=== PATIENT | male | born 1950 | race Hispanic/Latino ===

== ENCOUNTER 2017-12-17 21:55 | Emergency (ER) | payer MEDICARE ==
[2017-12-17] MEDS ORDERED: SODIUM CHLORIDE 0.9% 1000ML 1,000 ML IV ONE (22:24)
[2017-12-17] MEDS ORDERED: ACETAMINOPHEN EXTRA STRENGTH 500 MG TABLET ONE (22:24)
[2017-12-17] MEDS ORDERED: ONDANSETRON HCL MDV 20ML 2 MG/ML VIAL ONE (22:24)
[2017-12-17 22:27] LABS: BASOPHILS % (AUTO) 0.7 % (0.0-5.0); HEMATOCRIT 46.2 % (42-54); LYMPHOCYTES % (AUTO) 11.1 % (21.0-51.0); MEAN CORPUSCULAR HEMOGLOBIN 30.6 pg (27.0-33.0); MEAN CORPUSCULAR HGB CONC 34.3 g/dL (32.0-36.0); MONOCYTES % (AUTO) 10.1 % (3.0-13.0); NEUTROPHILS % (AUTO) 78.1 % (40.0-77.0); NUCLEATED RED BLOOD CELLS 0.1 % (0.0-0.19); PLATELET COUNT (AUTO) 333 K/uL (130-400); RED BLOOD CELL COUNT(AUTO) 5.18 MIL/uL (4.50-6.20); RED CELL DISTRIBUTION WIDTH 13.8 % (11.0-15.5); WHITE BLOOD COUNT (AUTO) 9.1 K/uL (4.8-10.8)
[2017-12-17 22:29] LABS: BILIRUBIN,URINE Negative (NEGATIVE); COLOR,URINE Yellow (YELLOW); GLUCOSE, URINE (UA) Negative (NEGATIVE); KETONES,URINE Negative (NEGATIVE); LEUKOCYTE ESTERASE ,URINE Negative (NEGATIVE); NITRATE,URINE Negative (NEGATIVE); OCCULT BLOOD,URINE Small (NEGATIVE); PH,URINE 6.5 (5.0-8.0); PROTEIN,URINE POS 2+ (NEGATIVE)
[2017-12-17 22:33] LABS: APPEARANCE,URINE SLIGHTLY CLOUDY (CLEAR)
[2017-12-17 22:39] LABS: CREATININE 1.2 mg/dL (0.5-1.5); POTASSIUM 3.5 mmol/L (3.5-5.1)
[2017-12-17 22:40] LABS: INR 1.06 (0.85-1.15); PARTIAL THROMBOPLASTIN TIME 28.3 SEC (26.3-35.5); PROTHROMBIN TIME 11.1 SEC (9.6-11.6)
[2017-12-17 22:43] LABS: ALBUMIN 3.3 g/dL (3.5-5.0); BILIRUBIN,DIRECT 0.1 mg/dL (0.0-0.3); BILIRUBIN,TOTAL 0.3 mg/dL (0.2-1.0); TOTAL PROTEIN, SERUM 8.6 g/dL (6.0-8.3)
[2017-12-17 22:45] LABS: WBC,URINE None Seen /HPF (0-1)
[2017-12-17 22:46] LABS: BACTERIA,URINE None Seen /HPF (None Seen); SQUAMOUS EPITHELIAL CELL,UR Rare /HPF (0-2)
== END 2017-12-18 00:51 | disposition home or self-care (01) ==
LOC: EDH 21:55
DX: K52.9 Noninfective gastroenteritis and colitis, unspecified (principal); I10 Essential (primary) hypertension; Z88.6 Allergy status to analgesic agent
CPT/HCPCS: 36415; 71045; 80048; 80076; 81001; 82550; 83605; 83690; 85025; 85610; 85730; 87804 ×2; 93005; 96361; 96374; 99285; J7030

== ENCOUNTER 2020-04-07 23:29 | Emergency (ER) | payer MEDICARE, OTHER ==
[~2020-04-07 23:29] MED LIST: CEFD300C3 PO; ENAL20TA18 PO
[2020-04-07] MEDS ORDERED: SODIUM CHLORIDE 0.9% 1000ML 1,000 ML IV ONE (23:30)
[2020-04-07] MEDS ORDERED: PANTOPRAZOLE 40 MG/VIAL IVP ONE (23:30)
[2020-04-07] MEDS ORDERED: METOCLOPRAMIDE 10 MG/2 ML VIAL IVP ONE (23:30)
[2020-04-07] MEDS ORDERED: ONDANSETRON HCL 4 MG/2 ML VIAL ONE (23:43)
[2020-04-07] MEDS ORDERED: FAMOTIDINE/PF 20 MG/2 ML VIAL IV ONE (23:43)
[2020-04-07 23:53] LABS: BASOPHILS % (AUTO) 0.4 % (0.0-5.0); EOSINOPHILS % (AUTO) 0.6 % (0.0-8.0); HEMATOCRIT 47.3 % (42-54); LYMPHOCYTES % (AUTO) 10.5 % (21.0-51.0); MEAN CORPUSCULAR HEMOGLOBIN 31.4 pg (27.0-33.0); MEAN CORPUSCULAR VOLUME 92.2 fL (79-99); MONOCYTES % (AUTO) 4.8 % (3.0-13.0); NEUTROPHILS % (AUTO) 83.5 % (40.0-77.0); PLATELET COUNT (AUTO) 393 K/uL (130-400); RED BLOOD CELL COUNT(AUTO) 5.13 MIL/uL (4.50-6.20); RED CELL DISTRIBUTION WIDTH 13.3 % (11.0-15.5)
[2020-04-08 00:19] LABS: BILIRUBIN,TOTAL 0.3 mg/dL (0.2-1.0); CREATININE 2.3 mg/dL (0.5-1.5); POTASSIUM 4.1 mmol/L (3.5-5.1)
[2020-04-08 00:29] LABS: INR 0.97 (0.85-1.15); PARTIAL THROMBOPLASTIN TIME 26.8 SEC (26.3-35.5); PROTHROMBIN TIME 10.5 SEC (9.6-11.6)
[2020-04-08 00:31] LABS: APPEARANCE,URINE Clear (CLEAR); BILIRUBIN,URINE Negative (NEGATIVE); COLOR,URINE Yellow (YELLOW); GLUCOSE, URINE (UA) Negative (NEGATIVE); KETONES,URINE Trace mg/dL (NEGATIVE); LEUKOCYTE ESTERASE ,URINE Negative (NEGATIVE); NITRATE,URINE Negative (NEGATIVE); OCCULT BLOOD,URINE Negative (NEGATIVE); PROTEIN,URINE POS 1+ mg/dL (NEGATIVE)
[2020-04-08 00:41] LABS: BACTERIA,URINE Few /HPF (None Seen); RBC,URINE 0-1 /HPF (0-1); WBC,URINE 0-1 /HPF (0-1)
[2020-04-08] MEDS ORDERED: ONDANSETRON HCL 4 MG/2 ML VIAL ONE (01:59)
== END 2020-04-08 02:08 | disposition home or self-care (01) ==
LOC: EDH 23:29
DX: E86.9 Volume depletion, unspecified (principal); R11.2 Nausea with vomiting, unspecified; R19.7 Diarrhea, unspecified; R10.13 Epigastric pain; I10 Essential (primary) hypertension; Z88.6 Allergy status to analgesic agent; Z87.891 Personal history of nicotine dependence
CPT/HCPCS: 36415; 71045; 74176; 80053; 81001; 82550; 83605; 83690; 84484; 85025; 85610; 85730; 93005; 96361; 96374; 96375; 96376; 99284; C9113; J2405 ×2; J2765; J3490; J7030

== ENCOUNTER 2021-04-25 08:00 | Emergency (ER) | payer MEDICARE, OTHER ==
[~2021-04-25] VITALS: Ht 175.3 cm; Wt 90.7 kg
[2021-04-25 08:11] LABS: BASOPHILS % (AUTO) 0.3 % (0.0-5.0); HEMATOCRIT 51.5 % (42-54); LYMPHOCYTES % (AUTO) 5.9 % (21.0-51.0); MEAN CORPUSCULAR HEMOGLOBIN 31.2 pg (27.0-33.0); MEAN CORPUSCULAR VOLUME 91.8 fL (79-99); MONOCYTES % (AUTO) 3.1 % (3.0-13.0); NEUTROPHILS % (AUTO) 89.9 % (40.0-77.0); PLATELET COUNT (AUTO) 566 K/uL (130-400); RED BLOOD CELL COUNT(AUTO) 5.61 MIL/uL (4.50-6.20); RED CELL DISTRIBUTION WIDTH 13.2 % (11.0-15.5); WHITE BLOOD COUNT (AUTO) 15.6 K/uL (4.8-10.8)
[2021-04-25] MEDS ORDERED: ONDANSETRON 4MG INJ IVP ONE (08:30)
[2021-04-25] MEDS ORDERED: 0.9% NACL 500ML IV.SOLN 500 ML IV ONE (08:30)
[2021-04-25 08:31] LABS: ALBUMIN 4.5 g/dL (3.5-5.0); BILIRUBIN,TOTAL 0.3 mg/dL (0.2-1.0); CREATININE 5.3 mg/dL (0.5-1.5); POTASSIUM 4.2 mmol/L (3.5-5.1); TOTAL PROTEIN, SERUM 10.2 g/dL (6.0-8.3)
[2021-04-25 09:01] LABS: CREATINE KINASE, TOTAL 146 U/L (21-232); LIPASE 191 U/L (114-286)
[2021-04-25 09:50] VITALS: BP 98/69
[2021-04-25] MEDS ORDERED: DIAZEPAM 2 MG TAB PO ONE (11:00)
[2021-04-25 11:26] VITALS: BP 101/69
[2021-04-25] MEDS ORDERED: ONDA4TAB10 PO (13:51)
== END 2021-04-25 14:23 | disposition home or self-care (01) ==
LOC: EDH 08:00
DX: R11.2 Nausea with vomiting, unspecified (principal); R19.7 Diarrhea, unspecified; R10.9 Unspecified abdominal pain; I10 Essential (primary) hypertension; Z20.822 Contact with and (suspected) exposure to COVID-19; Z88.6 Allergy status to analgesic agent; Z79.899 Other long term (current) drug therapy; Z98.890 Other specified postprocedural states
CPT/HCPCS: 36415; 71045; 74176; 80053; 82550; 83690; 83880; 84484; 85025; 87635; 87804 ×2; 93005; 96374; 99285; C9803; J2405; J7040

== ENCOUNTER 2021-05-05 19:40 | Inpatient (IN) | payer MEDICARE ==
[~2021-05-05] VITALS: Ht 177.8 cm; Wt 85.2 kg
[~2021-05-05 19:40] MED LIST changes: +ONDA4TAB10 PO
[2021-05-05 20:25] VITALS: BP 107/66
[2021-05-05] MEDS ORDERED: 0.9%NACL 1000ML 1,000 ML IV ONE (20:30)
[2021-05-05 20:43] LABS: BASOPHILS % (AUTO) 0.5 % (0.0-5.0); EOSINOPHILS % (AUTO) 0.8 % (0.0-8.0); HEMATOCRIT 46.1 % (42-54); LYMPHOCYTES % (AUTO) 10.3 % (21.0-51.0); MEAN CORPUSCULAR HEMOGLOBIN 31.2 pg (27.0-33.0); MEAN CORPUSCULAR HGB CONC 33.4 g/dL (32.0-36.0); MEAN CORPUSCULAR VOLUME 93.5 fL (79-99); MONOCYTES % (AUTO) 6.4 % (3.0-13.0); NEUTROPHILS % (AUTO) 81.6 % (40.0-77.0); PLATELET COUNT (AUTO) 481 K/uL (130-400); RED BLOOD CELL COUNT(AUTO) 4.93 MIL/uL (4.50-6.20); RED CELL DISTRIBUTION WIDTH 13.2 % (11.0-15.5); WHITE BLOOD COUNT (AUTO) 16.2 K/uL (4.8-10.8)
[2021-05-05 21:03] LABS: CREATININE 2.5 mg/dL (0.5-1.5); POTASSIUM 5.4 mmol/L (3.5-5.1)
[2021-05-05 21:07] LABS: ALBUMIN 3.6 g/dL (3.5-5.0); BILIRUBIN,TOTAL 0.5 mg/dL (0.2-1.0); MAGNESIUM 2.2 mg/dL (1.80-2.40); TOTAL PROTEIN, SERUM 8.2 g/dL (6.0-8.3)
[2021-05-05 21:31] VITALS: BP 94/45
[2021-05-05 22:15] LABS: ABG OXYGEN SATURATION 27.1 % (95.0-99.0); BASE EXCESS,VENOUS BLOOD GAS -9.4 (-2.0-3.0); HCO3,VENOUS BLOOD GAS 17.1 (21.0-28.0); PCO2,VENOUS BLOOD GAS 40 (35-48); PH,VENOUS BLOOD GAS 7.255 (7.350-7.450)
[2021-05-05 22:31] LABS: HEMOGLOBIN A1C 6.2 % (4.0-6.0)
[2021-05-05 22:33] LABS: INR 1.08 (0.85-1.15); PROTHROMBIN TIME 11.7 SEC (9.6-11.6)
[2021-05-05 22:34] LABS: PARTIAL THROMBOPLASTIN TIME 26.5 SEC (26.3-35.5)
[2021-05-05 22:49] LABS: MAGNESIUM 1.9 mg/dL (1.80-2.40); PHOSPHORUS 4.1 mg/dL (2.5-4.9); THYROID STIMULATING HORMONE 0.86 uIU/mL (0.36-3.74)
[2021-05-05] MEDS ORDERED: MORPHINE 4 MG SYG IV PRN (23:00)
[2021-05-05] MEDS ORDERED: HYDRALAZINE 20MG/ML VIAL IV PRN (23:00)
[2021-05-05] MEDS ORDERED: HYDROCODONE/ACETAMINOPHEN 5/325 MG TAB PO PRN (23:00)
[2021-05-05] MEDS ORDERED: ONDANSETRON 4MG INJ IV PRN (23:00)
[2021-05-05] MEDS ORDERED: ACETAMINOPHEN 325 MG TAB PO PRN (23:00)
[2021-05-05 23:35] LABS: APPEARANCE,URINE Clear (CLEAR); BILIRUBIN,URINE Negative (NEGATIVE); COLOR,URINE Yellow (YELLOW); GLUCOSE, URINE (UA) Negative (NEGATIVE); KETONES,URINE Trace mg/dL (NEGATIVE); LEUKOCYTE ESTERASE ,URINE Negative (NEGATIVE); NITRATE,URINE Negative (NEGATIVE); OCCULT BLOOD,URINE Negative (NEGATIVE); PROTEIN,URINE Trace mg/dL (NEGATIVE); UROBILINOGEN,URINE 0.2 mg/dL (0.2-1.0)
[2021-05-05] MEDS: 0.9%NACL 1000ML 1,000 ML IV SCH (23:51)
[2021-05-05] MEDS: LEVOFLOXACIN 500 MG/D5W 100 ML 100 ML IV SCH (23:51)
[2021-05-06] VITALS (7 sets, daily range): BP systolic 84–111; BP diastolic 48–73
[2021-05-06] MEDS ORDERED: SODI650T PO (01:36)
[2021-05-06] MEDS ORDERED: TAMS-1 PO (01:36)
[2021-05-06] MEDS ORDERED: ONDA4TAB4 PO (01:36)
[2021-05-06] MEDS ORDERED: MULT-1296 PO (01:36)
[2021-05-06] MEDS ORDERED: ENAL20TA18 PO (01:36)
[2021-05-06] MEDS: 0.9%NACL 1000ML 1,000 ML IV SCH ×3 (05:38→19:22)
[2021-05-06 06:30] LABS: BASOPHILS % (AUTO) 0.9 % (0.0-5.0); EOSINOPHILS % (AUTO) 1.5 % (0.0-8.0); HEMATOCRIT 43.9 % (42-54); LYMPHOCYTES % (AUTO) 14.9 % (21.0-51.0); MEAN CORPUSCULAR HEMOGLOBIN 30.6 pg (27.0-33.0); MEAN CORPUSCULAR HGB CONC 32.3 g/dL (32.0-36.0); MEAN CORPUSCULAR VOLUME 94.6 fL (79-99); MONOCYTES % (AUTO) 6.2 % (3.0-13.0); NEUTROPHILS % (AUTO) 75.9 % (40.0-77.0); PLATELET COUNT (AUTO) 446 K/uL (130-400); RED BLOOD CELL COUNT(AUTO) 4.64 MIL/uL (4.50-6.20); RED CELL DISTRIBUTION WIDTH 13.4 % (11.0-15.5); WHITE BLOOD COUNT (AUTO) 13.8 K/uL (4.8-10.8)
[2021-05-06 06:42] LABS: CREATININE 2.1 mg/dL (0.5-1.5); MAGNESIUM 2.1 mg/dL (1.80-2.40)
[2021-05-06] MEDS ORDERED: ENALAPRIL MALEATE 10 MG TABLET PO SCH (09:00)
[2021-05-06] MEDS: FAMOTIDINE 20MG TAB PO SCH (11:16)
[2021-05-06] MEDS: HEPARIN 5,000 UNIT VIAL SQ SCH ×3 (11:16→20:58)
[2021-05-06] MEDS: TAMSULOSIN HCL 0.4 MG CAP.ER.24H PO SCH (11:18)
[2021-05-06] MEDS: SODIUM BICARBONATE 650 MG TAB PO SCH ×3 (11:18→20:57)
[2021-05-06] MEDS: METRONIDAZOLE 500 MG TABLET PO SCH ×3 (11:24→20:57)
[2021-05-06] MEDS: LEVOFLOXACIN 500 MG/D5W 100 ML 100 ML IV SCH (20:57)
[2021-05-06] MEDS ORDERED: 0.9% NACL 500ML IV.SOLN 500 ML IV SCH (22:00)
[2021-05-07] VITALS (7 sets, daily range): BP systolic 96–121; BP diastolic 53–70
[2021-05-07 03:47] LABS: BASOPHILS % (AUTO) 0.8 % (0.0-5.0); EOSINOPHILS % (AUTO) 3.5 % (0.0-8.0); HEMATOCRIT 33.7 % (42-54); LYMPHOCYTES % (AUTO) 28.5 % (21.0-51.0); MEAN CORPUSCULAR HEMOGLOBIN 30.9 pg (27.0-33.0); MEAN CORPUSCULAR HGB CONC 32.6 g/dL (32.0-36.0); MEAN CORPUSCULAR VOLUME 94.7 fL (79-99); MONOCYTES % (AUTO) 6.7 % (3.0-13.0); NEUTROPHILS % (AUTO) 60.1 % (40.0-77.0); PLATELET COUNT (AUTO) 321 K/uL (130-400); RED BLOOD CELL COUNT(AUTO) 3.56 MIL/uL (4.50-6.20); RED CELL DISTRIBUTION WIDTH 13.1 % (11.0-15.5); WHITE BLOOD COUNT (AUTO) 8.5 K/uL (4.8-10.8)
[2021-05-07] MEDS: 0.9%NACL 1000ML 1,000 ML IV SCH ×2 (03:52→08:41)
[2021-05-07 04:09] LABS: ALBUMIN 2.3 g/dL (3.5-5.0); CREATININE 1.8 mg/dL (0.5-1.5); PHOSPHORUS 3.5 mg/dL (2.5-4.9); POTASSIUM 4.9 mmol/L (3.5-5.1)
[2021-05-07] MEDS: SODIUM BICARBONATE 650 MG TAB PO SCH ×3 (10:45→20:52)
[2021-05-07] MEDS: TAMSULOSIN HCL 0.4 MG CAP.ER.24H PO SCH (10:45)
[2021-05-07] MEDS: METRONIDAZOLE 500 MG TABLET PO SCH ×3 (10:45→20:52)
[2021-05-07] MEDS: FAMOTIDINE 20MG TAB PO SCH (10:45)
[2021-05-07] MEDS: HEPARIN 5,000 UNIT VIAL SQ SCH ×3 (10:47→20:55)
[2021-05-07 17:59] LABS: APPEARANCE,URINE Clear (CLEAR); BILIRUBIN,URINE Negative (NEGATIVE); COLOR,URINE Yellow (YELLOW); GLUCOSE, URINE (UA) Negative (NEGATIVE); KETONES,URINE Negative (NEGATIVE); LEUKOCYTE ESTERASE ,URINE Negative (NEGATIVE); NITRATE,URINE Negative (NEGATIVE); OCCULT BLOOD,URINE Negative (NEGATIVE); PROTEIN,URINE Negative (NEGATIVE); UROBILINOGEN,URINE 0.2 mg/dL (0.2-1.0)
[2021-05-07] MEDS: LEVOFLOXACIN 500 MG/D5W 100 ML 100 ML IV SCH (23:30)
[2021-05-08] VITALS: BP 113/70
[2021-05-08 04:00] VITALS: BP 119/68
[2021-05-08 05:51] LABS: BASOPHILS % (AUTO) 0.8 % (0.0-5.0); EOSINOPHILS % (AUTO) 3.5 % (0.0-8.0); HEMATOCRIT 34.3 % (42-54); LYMPHOCYTES % (AUTO) 25.5 % (21.0-51.0); MEAN CORPUSCULAR HEMOGLOBIN 30.5 pg (27.0-33.0); MEAN CORPUSCULAR HGB CONC 32.1 g/dL (32.0-36.0); MONOCYTES % (AUTO) 7.1 % (3.0-13.0); NEUTROPHILS % (AUTO) 62.7 % (40.0-77.0); PLATELET COUNT (AUTO) 306 K/uL (130-400); RED BLOOD CELL COUNT(AUTO) 3.61 MIL/uL (4.50-6.20); RED CELL DISTRIBUTION WIDTH 13.1 % (11.0-15.5); WHITE BLOOD COUNT (AUTO) 8.5 K/uL (4.8-10.8)
[2021-05-08 05:59] LABS: CREATININE 1.5 mg/dL (0.5-1.5); POTASSIUM 4.6 mmol/L (3.5-5.1)
[2021-05-08] MEDS: SODIUM BICARBONATE 650 MG TAB PO SCH (07:51)
[2021-05-08] MEDS: FAMOTIDINE 20MG TAB PO SCH (07:51)
[2021-05-08] MEDS: TAMSULOSIN HCL 0.4 MG CAP.ER.24H PO SCH (07:51)
[2021-05-08] MEDS: HEPARIN 5,000 UNIT VIAL SQ SCH (07:52)
[2021-05-08 08:02] VITALS: BP 124/72
[2021-05-08] MEDS ORDERED: TAMSULOSIN HCL 0.4 MG CAP.ER.24H PO SCH (09:00)
[2021-05-08] MEDS: METRONIDAZOLE 500 MG TABLET PO SCH (09:06)
[2021-05-08] MEDS ORDERED: METR500T PO (10:38)
[2021-05-08 12:10] VITALS: BP_SYST 120; BP_SYST 121; BP_SYST 124; BP_DIAS 66; BP_DIAS 68; BP_DIAS 70
[2021-05-08 16:21] VITALS: BP 134/80
== END 2021-05-08 17:41 | disposition home or self-care (01) | DRG 683 ==
LOC: EDH 19:40 → EDHIP 22:56 → 4CH 05-06 08:36
PROVIDERS: ADMIT Internal Medicine; ATTEND Internal Medicine
DX: N17.9 Acute kidney failure, unspecified (principal); E87.2 Acidosis; A09 Infectious gastroenteritis and colitis, unspecified; E86.0 Dehydration; N18.30 Chronic kidney disease, stage 3 unspecified; E87.5 Hyperkalemia; E87.8 Other disorders of electrolyte and fluid balance, not elsewhere classified; N20.0 Calculus of kidney; I12.9 Hypertensive chronic kidney disease with stage 1 through stage 4 chronic kidney disease, or unspecified chronic kidney disease; N40.1 Benign prostatic hyperplasia with lower urinary tract symptoms; R33.8 Other retention of urine; Z88.6 Allergy status to analgesic agent; Z90.5 Acquired absence of kidney; Z85.528 Personal history of other malignant neoplasm of kidney; Z87.891 Personal history of nicotine dependence; Z83.6 Family history of other diseases of the respiratory system; Z83.3 Family history of diabetes mellitus; Z82.0 Family history of epilepsy and other diseases of the nervous system; Z80.0 Family history of malignant neoplasm of digestive organs; Z84.89 Family history of other specified conditions; Z82.49 Family history of ischemic heart disease and other diseases of the circulatory system
CPT/HCPCS: 36415; 36600; 74176; 80048; 80053; 80061; 80069; 81003; 82270; 82550; 82803; 83036; 83605; 83630; 83690; 83735; 84100; 84145; 84443; 84484; 85025; 85610; 85730; 87040; 87046; 87088; 87324; 87338; G0378; J1644; J1956; J2405; J7030; J7040

== ENCOUNTER 2021-05-30 04:31 | Emergency (ER) | payer MEDICARE ==
[~2021-05-30] VITALS: Ht 180.3 cm; Wt 81.6 kg
[~2021-05-30 04:31] MED LIST changes: -CEFD300C3 PO; -ENAL20TA18 PO; +METR500T PO; +MULT-1296 PO; -ONDA4TAB10 PO; +ONDA4TAB4 PO; +SODI650T PO; +TAMS-1 PO
[2021-05-30 05:20] LABS: APPEARANCE,URINE Clear (CLEAR); BILIRUBIN,URINE Negative (NEGATIVE); COLOR,URINE Orange (YELLOW); GLUCOSE, URINE (UA) Negative (NEGATIVE); KETONES,URINE Negative (NEGATIVE); LEUKOCYTE ESTERASE ,URINE Moderate (NEGATIVE); NITRATE,URINE Positive (NEGATIVE); OCCULT BLOOD,URINE Large (NEGATIVE); PH,URINE 5.5 (5.0-8.0); PROTEIN,URINE Trace mg/dL (NEGATIVE)
[2021-05-30] MEDS ORDERED: DOXY-336 PO (05:24)
[2021-05-30 05:50] VITALS: BP 136/87
[2021-05-30 05:56] LABS: RBC,URINE TNTC /HPF (0-1); WBC,URINE 26-50 /HPF (0-1)
[2021-05-30 05:57] LABS: BACTERIA,URINE Moderate /HPF (None Seen); SQUAMOUS EPITHELIAL CELL,UR Few /HPF (0-2)
[2021-06-05] MEDS ORDERED: ENAL20TA18 PO (12:32)
[2021-06-05] MEDS ORDERED: LEVO500T89 PO (12:33)
[2021-06-05] MEDS ORDERED: MV-M1TAB20 PO (12:33)
== END 2021-05-30 05:59 | disposition home or self-care (01) ==
LOC: EDH 04:31
DX: N39.0 Urinary tract infection, site not specified (principal); R33.8 Other retention of urine; Z79.899 Other long term (current) drug therapy; Z85.528 Personal history of other malignant neoplasm of kidney; Z88.6 Allergy status to analgesic agent
CPT/HCPCS: 51702; 81001; 87077; 87088; 87186

== ENCOUNTER 2021-06-06 08:49 | Day surgery (SDC) | payer MEDICARE ==
[2021-05-31 14:14] LABS: BASOPHILS % (AUTO) 0.7 % (0.0-5.0); EOSINOPHILS % (AUTO) 1.4 % (0.0-8.0); HEMATOCRIT 40.9 % (42-54); LYMPHOCYTES % (AUTO) 16.7 % (21.0-51.0); MEAN CORPUSCULAR HEMOGLOBIN 30.9 pg (27.0-33.0); MEAN CORPUSCULAR HGB CONC 32.8 g/dL (32.0-36.0); MEAN CORPUSCULAR VOLUME 94.2 fL (79-99); MONOCYTES % (AUTO) 9.5 % (3.0-13.0); NEUTROPHILS % (AUTO) 70.9 % (40.0-77.0); PLATELET COUNT (AUTO) 511 K/uL (130-400); RED BLOOD CELL COUNT(AUTO) 4.34 MIL/uL (4.50-6.20); RED CELL DISTRIBUTION WIDTH 13.8 % (11.0-15.5); WHITE BLOOD COUNT (AUTO) 13.2 K/uL (4.8-10.8)
[2021-05-31 14:28] LABS: CREATININE 1.4 mg/dL (0.5-1.5); POTASSIUM 3.9 mmol/L (3.5-5.1)
[2021-05-31 14:33] LABS: APPEARANCE,URINE Clear (CLEAR); BILIRUBIN,URINE Negative (NEGATIVE); COLOR,URINE Yellow (YELLOW); GLUCOSE, URINE (UA) Negative (NEGATIVE); KETONES,URINE Negative (NEGATIVE); LEUKOCYTE ESTERASE ,URINE Small (NEGATIVE); NITRATE,URINE Negative (NEGATIVE); OCCULT BLOOD,URINE Moderate (NEGATIVE); PROTEIN,URINE POS 2+ mg/dL (NEGATIVE)
[2021-05-31 14:42] LABS: INR 1.05 (0.85-1.15); PROTHROMBIN TIME 11.4 SEC (9.6-11.6)
[2021-05-31 14:44] LABS: PARTIAL THROMBOPLASTIN TIME 28.5 SEC (26.3-35.5)
[2021-05-31 14:45] LABS: BACTERIA,URINE Few /HPF (None Seen); RBC,URINE 26-50 /HPF (0-1)
[2021-06-05 12:05] VITALS: BP 128/80
[2021-06-06] VITALS (13 sets, daily range): BP systolic 98–130; BP diastolic 61–83
[~2021-06-06] VITALS: Ht 175.3 cm; Wt 86.1 kg
[~2021-06-06 08:49] MED LIST changes: +CEFTRIAXONE 1G VIAL IVP ONE; +ENAL20TA18 PO; +LEVO500T90 PO; -METR500T PO; +MV-M1TAB20 PO; -ONDA4TAB4 PO; +PHARMACY COMMUNICATION MISC SCH; -SODI650T PO
[2021-06-06] MEDS ORDERED: CEFTRIAXONE 1G VIAL ONE (10:03)
[2021-06-06] MEDS ORDERED: LACTATED RINGERS 1000ML 1,000 ML IV ONE (10:04)
[2021-06-06] MEDS ORDERED: [UNRECOGNIZED DRUG - OTHER] IV SCH (10:30)
[2021-06-06] MEDS ORDERED: GENTAMICIN SULFATE IV SCH (10:30)
[2021-06-06] MEDS ORDERED: PROPOFOL 10 MG/ML 20ML VIAL IV ONE (12:06)
[2021-06-06] MEDS ORDERED: LIDOCAINE HCL MPF 1% 5ML VIAL ONE (12:06)
[2021-06-06] MEDS ORDERED: ROCURONIUM 10MG/1ML SYR 10 MG/ML ML ONE ×2 (12:06→13:13)
[2021-06-06] MEDS ORDERED: MIDAZOLAM HCL 1 MG/ML 2ML VIAL ONE (12:06)
[2021-06-06] MEDS ORDERED: SUCCINYLCHOLINE 200MG/10ML SYR ONE (12:06)
[2021-06-06] MEDS ORDERED: FENTANYL CITRATE PF 50 MCG/1 ML 2ML VIAL ONE (12:06)
[2021-06-06] MEDS ORDERED: SUGAMMADEX SODIUM 200 MG/2 ML VIAL IV ONE (13:22)
[2021-06-06] MEDS ORDERED: OPIUM/BELLADONNA ALKALOIDS 1 EACH SUPP.RECT RC ONE (13:23)
[2021-06-06] MEDS ORDERED: MEPERIDINE-PF 25 MG/ML SYG ONE (13:46)
== END 2021-06-06 14:50 | disposition home or self-care (01) ==
LOC: DAH 08:49
PROVIDERS: ATTEND Urology
DX: N40.1 Benign prostatic hyperplasia with lower urinary tract symptoms (principal); Z20.822 Contact with and (suspected) exposure to COVID-19; R33.8 Other retention of urine; E66.9 Obesity, unspecified; I10 Essential (primary) hypertension; M19.90 Unspecified osteoarthritis, unspecified site; Z87.440 Personal history of urinary (tract) infections; Z85.528 Personal history of other malignant neoplasm of kidney; Z79.01 Long term (current) use of anticoagulants
CPT/HCPCS: 36415; 52648; 71045; 80048; 81001; 85025; 85610; 85730; 87088; 87635; 93005; A4215; A4221; A4222; A4223; A4354; A4358; A4600; A4657; A4663; A4930; A6260; C9803; J0330; J0696; J1580; J2175; J2250; J2704; J3010; J3490; J7030; J7120; 96365

== ENCOUNTER 2022-09-03 18:09 | Emergency (ER) | payer OTHER, MEDICARE ==
[~2022-09-03] VITALS: Ht 177.8 cm; Wt 95.3 kg
[~2022-09-03 18:09] MED LIST changes: -CEFTRIAXONE 1G VIAL IVP ONE; +LEVO-70 PO; -LEVO500T90 PO; -PHARMACY COMMUNICATION MISC SCH
[2022-09-03 18:13] VITALS: BP 154/87
== END 2022-09-03 21:13 | disposition home or self-care (01) ==
LOC: EDH 18:09
DX: S39.81XA Other specified injuries of abdomen, initial encounter (principal); Z79.899 Other long term (current) drug therapy; Z98.890 Other specified postprocedural states; Z85.528 Personal history of other malignant neoplasm of kidney; V49.88XA Car occupant (driver) (passenger) injured in other specified transport accidents, initial encounter; Y93.89 Activity, other specified; Y92.89 Other specified places as the place of occurrence of the external cause; Y99.8 Other external cause status
CPT/HCPCS: 76705